=== PATIENT | female | born 1990 | race African-American/Black ===

== ENCOUNTER 2018-02-22 20:13 | Outpatient (CLI) | payer MEDICAID ==
[2015-05-13 12:57] VITALS: BMI 30.9
[~2018-02-22 20:13] MED LIST: IBUPROFEN600 MG PO; MACROBID100 MG PO; PERCOCET 5-3251 TAB PO; PRENATAL COMPLE1 TAB PO
== END 2018-02-22 21:31 | disposition home or self-care (01) ==
LOC: D.LDO 20:13
DX: O26.899 Other specified pregnancy related conditions, unspecified trimester (principal); Z3A.00 Weeks of gestation of pregnancy not specified

== ENCOUNTER → 2020-03-28 08:06 | Outpatient (CLI) | payer MEDICAID ==
[2015-05-13 12:57] VITALS: BMI 30.9
[2020-03-28 09:29] LABS: BILIRUBIN NEGATIVE (NEGATIVE); GLUCOSE NEGATIVE (NEGATIVE); KETONE NEGATIVE (NEGATIVE); NITRITE NEGATIVE (NEGATIVE); UROBILINOGEN NORMAL (NORMAL)
[2020-03-28 09:30] LABS: BACTERIA FEW /hpf (NEGATIVE); RED CELLS - URINE 0-5 /hpf (0-5); WHITE CELLS - URINE 0-5 /hpf (NEGATIVE)
[2020-03-28 09:34] LABS: UDS - AMPHET NEGATIVE QUAL (NEGATIVE); UDS - BARB NEGATIVE QUAL (NEGATIVE); UDS - BENZO NEGATIVE QUAL (NEGATIVE); UDS - COCAINE NEGATIVE QUAL (NEGATIVE); UDS - OPIATE NEGATIVE QUAL (NEGATIVE); UDS - PCP NEGATIVE QUAL (NEGATIVE); UDS - THC NEGATIVE QUAL (NEGATIVE)
== END | disposition home or self-care (01) ==
LOC: D.LDO 08:06
PROVIDERS: ATTEND Obstetrics & Gynecology
DX: O26.899 Other specified pregnancy related conditions, unspecified trimester (principal); Z3A.00 Weeks of gestation of pregnancy not specified

== ENCOUNTER 2020-04-14 11:27 | Outpatient (CLI) | payer MEDICAID ==
[2015-05-13 12:57] VITALS: BMI 30.9
== END 2020-04-14 13:40 | disposition home or self-care (01) ==
LOC: D.LDO 11:27
PROVIDERS: ATTEND Student in an Organized Health Care Education/Training Program
DX: O24.419 Gestational diabetes mellitus in pregnancy, unspecified control (principal); Z3A.33 33 weeks gestation of pregnancy

== ENCOUNTER 2020-04-25 11:33 | Outpatient (CLI) | payer OTHER ==
[2015-05-13 12:57] VITALS: BMI 30.9
== END 2020-04-25 11:57 | disposition home or self-care (01) ==
LOC: D.LDO 11:33
PROVIDERS: ATTEND Student in an Organized Health Care Education/Training Program
DX: O24.419 Gestational diabetes mellitus in pregnancy, unspecified control (principal)

== ENCOUNTER 2020-04-28 12:07 | Outpatient (CLI) | payer OTHER ==
[2015-05-13 12:57] VITALS: BMI 30.9
== END 2020-04-28 13:24 | disposition home or self-care (01) ==
LOC: D.LDO 12:07
PROVIDERS: ATTEND Student in an Organized Health Care Education/Training Program
DX: O24.419 Gestational diabetes mellitus in pregnancy, unspecified control (principal)

== ENCOUNTER 2020-05-05 11:30 | Outpatient (CLI) | payer OTHER ==
[2015-05-13 12:57] VITALS: BMI 30.9
== END 2020-05-05 12:22 | disposition home or self-care (01) ==
LOC: D.LDO 11:30
PROVIDERS: ATTEND Student in an Organized Health Care Education/Training Program
DX: O24.419 Gestational diabetes mellitus in pregnancy, unspecified control (principal)

== ENCOUNTER 2020-05-18 15:52 | Outpatient (CLI) | payer OTHER ==
[2015-05-13 12:57] VITALS: BMI 30.9
== END 2020-05-18 17:15 | disposition home or self-care (01) ==
LOC: D.LDO 15:52
PROVIDERS: ATTEND Student in an Organized Health Care Education/Training Program
DX: O24.419 Gestational diabetes mellitus in pregnancy, unspecified control (principal)

== ENCOUNTER 2020-05-23 04:50 | Inpatient (IN) | payer OTHER ==
[~2020-05-23] VITALS: Ht 167.6 cm; Wt 88.9 kg
[2020-05-23] VITALS: BP 129/80
[2020-05-23 04:56] VITALS: BP 130/81; BMI 31.7
[2020-05-23 06:14] LABS: HEMATOCRIT 29.6 % (36.0-48.0); HEMOGLOBIN 9.8 g/dL (12-16); MCH 27.3 pg (26.0-34.0); MCHC 33.1 g/dL (31.0-37.0); MCV 82.5 fL (80.0-100.0); MEAN PLATELET VOLUME 9.9 fL (7.4-10.4); RBC 3.59 10x6/uL (4.00-5.40); RDW 13.4 % (11.5-14.5); WBC 8.8 10x3/uL (4.8-10.8)
[2020-05-23 06:30] LABS: BILIRUBIN NEGATIVE (NEGATIVE); KETONE SMALL mg/dL (NEGATIVE); NITRITE NEGATIVE (NEGATIVE); UROBILINOGEN NORMAL mg/dL (< 2)
[2020-05-23 06:31] LABS: BACTERIA FEW HPF (NONE SEEN); WHITE CELLS - URINE 0-5 HPF (0-4)
[2020-05-23 06:36] LABS: UDS - AMPHET NEGATIVE QUAL (NEGATIVE); UDS - BARB NEGATIVE QUAL (NEGATIVE); UDS - BENZO NEGATIVE QUAL (NEGATIVE); UDS - COCAINE NEGATIVE QUAL (NEGATIVE); UDS - OPIATE NEGATIVE QUAL (NEGATIVE); UDS - PCP NEGATIVE QUAL (NEGATIVE); UDS - THC NEGATIVE QUAL (NEGATIVE)
--- NOTE | 2020-05-23 23:15 | NUR ---
RECEIVED PT TO [facility] FROM [facility]. PT AMBULATED TO NEW ROOM. HER IS WITH HER. SHE HAS A RIGHT HAND SL. HER FUNDUS IS FIRM AFTER MASSAGE, BLEEDING IS LIGHT. SHE HAS VOIDED ONE TIME. PT IS SBA TO I IN HER ADL'S. SHE IS HAVING BACK PAIN FROM THE MANIPULATIONS TO HER EPIDURAL CATHETER TO GET IT OUT. SHE HAS HAD MOTRIN, WHICH PT STATES HAS NOT HELPED. HEART SOUNDS REGULAR WITHOUT MURMUR, LUNGS CLEAR, BS HEARD. PT AND ARE SETTLEING IN THEIR NEW ROOM NICELY. THEY ASKED FOR AND RECEIVED A GLASS OF ICE AND REAL COKE. THIS WAS DELIVERED TO THEM. OFFER THEM A SANDWICH BUT THEY BOTH DECLINED.
--- NOTE | 2020-05-23 23:32 | NUR ---
PT MOVED TO ROOM 1222.
[2020-05-24] VITALS: BP 129/80
--- NOTE | 2020-05-24 01:15 | NUR ---
PT C/O OF HORRIBLE BACK PAIN NOW. SHE WAS GIVEN 4 MG MORPHINE IV. ORDER WAS STILL ACTIVE AT THE TIME.
--- NOTE | 2020-05-24 02:27 | NUR ---
PT CONT. TO C/O PAIN. MOTRIN 600 MG GIVEN PO PER DR. MEZA. SHE RATES HER PAIN AN 8
--- NOTE | 2020-05-24 04:00 | NUR ---
PT AND ARE SLEEPING. NO C/O OR NEEDS
--- NOTE | 2020-05-24 06:00 | NUR ---
PT HAS BEEN SLEEPING WELL. SHE STATES HER BACK IS SORE TODAY BUT SHE IS NOT IN MUCH PAIN SHE WAS EARLIER IN THE SHIFT. FASTING BLOOD SUGAR 121
--- NOTE | 2020-05-24 07:00 | NUR ---
REPORT RECEIVED FROM Blu CHO RN.
[2020-05-24 07:16] LABS: RAPID PLASMA REAGIN Non Reactive (Non Reactive)
[2020-05-24 07:26] LABS: BASOPHILS 0 % (0-2); EOSINOPHILS 0.5 % (0-7); IMMATURE GRANULOCYTES 0.2 % (0-5); MCH 27.4 pg (26.0-34.0); MCHC 32.9 g/dL (31.0-37.0); MCV 83.3 fL (80.0-100.0); MEAN PLATELET VOLUME 9.7 fL (7.4-10.4); NEUTROPHILS 73.3 % (40-80); RDW 13.6 % (11.5-14.5)
[2020-05-24 07:42] LABS: HEMATOCRIT 23.4 % (36.0-48.0); HEMOGLOBIN 7.7 g/dL (12-16); PLATELET COUNT 183 10x3/uL (130-400); RBC 2.81 10x6/uL (4.00-5.40); WBC 12.8 10x3/uL (4.8-10.8)
[2020-05-24 09:00] VITALS: BP 114/78
--- NOTE | 2020-05-24 09:00 | NUR ---
TO ROOM FOR ASSESSMENT-SEE FLOWSHEET. PT SITTING UP IN BED. PT C/O BACK PAIN AT EPIDURAL SITE BETWEEN HIPS AND BETWEEN SHOULDER BLADES. DENIES HEADACHE OR LOWER LIMB WEAKNESS/NUMBNESS. FUNDUS IS FIRM AT 1 BELOW THE UMBLICUS, MIDLINE;LOCHIA SMALL/SCANT AND RUBRA. NO OTHER NEEDS OR CONCERNS VOICED AT THIS TIME.
--- NOTE | 2020-05-24 09:50 | NUR ---
DR. STEELE ON UNIT FOR ROUNDS. IN TO SEE PT. ORDERS RECIEVED.
[2020-05-24 10:37] VITALS: Ht 167.6 cm; Wt 88.9 kg
--- NOTE | 2020-05-24 12:22 | NUR ---
ROOM CHECK. PATIENT DENIES PAINS OR NEEDS AT THIS TIME. CALL LIGHT IN REACH. SIDE RAILS UP X2. PATIENT UP WALKING IN ROOM. FOB AT BEDSIDE HOLDING . WILL CONTINUE TO MONITOR.
--- NOTE | 2020-05-24 13:58 | NUR ---
ROOM CHECK. PATIENT DENIES PAIN OR NEEDS. CALL LIGHT IN REACH. SIDE RAILS UP X 2. FOB IN ROOM. WILL CONTINUE TO MONITOR.
--- NOTE | 2020-05-24 14:20 | NUR ---
PT REQUESTS MOTRIN FOR BACK PAIN. MOTRIN GIVEN. NO OTHER NEEDS OR CONCERNS AT THIS TIME.
--- NOTE | 2020-05-24 15:40 | NUR ---
ROUNDS MADE. MALE VISITOR AT BEDSIDE. PT SITTING UP IN BED WITH BABY IN ARMS. NO NEEDS VOICED AT THIS TIME.
[2020-05-24 16:07] LABS: BASOPHILS 0 % (0-2); EOSINOPHILS 0.3 % (0-7); HEMATOCRIT 23.4 % (36.0-48.0); HEMOGLOBIN 7.6 g/dL (12-16); IMMATURE GRANULOCYTES 0.2 % (0-5); LYMPHOCYTES 17.3 % (15-50); MCH 27.1 pg (26.0-34.0); MCHC 32.5 g/dL (31.0-37.0); MCV 83.6 fL (80.0-100.0); MEAN PLATELET VOLUME 9.1 fL (7.4-10.4); MONOCYTES 5.6 % (2-11); NEUTROPHILS 76.6 % (40-80); PLATELET COUNT 185 10x3/uL (130-400); RDW 13.4 % (11.5-14.5); WBC 12.9 10x3/uL (4.8-10.8)
--- NOTE | 2020-05-24 17:30 | NUR ---
DR. STEELE CALLED TO UNIT. REPORTED CBC RESULTS. DR. STEELE STATES PT MAY D/C TO ROOMING IN IF PT DESIRES.
--- NOTE | 2020-05-24 17:51 | NUR ---
PT SEE SUPERVISOR LIGHT REQUESTING NURSE TO COME TO ROOM. PT STATES SHE STOOD UP TO GO TO BATHROOM AND FELT A CLOT COME OUT. PT BACK TO BED. LARGE CLOT (APPROX. EGG SIZE) ON PERIPAD. FUNDUS FIRM 2 ABOVE UMBILICUS, SHIFTED LEFT. PT STATES BLADDER IS FULL; LOCHIA IS SCANT. INSTRUCTED PT TO CALL WHEN BACK TO BED AFTER VOIDING TO ASSESS BLEEDING/FUNDUS. STATES UNDERSTANDNG.
[2020-05-24 18:17] VITALS: BP 128/81
--- NOTE | 2020-05-24 18:18 | NUR ---
PT BACK TO BED. VS TAKEN. PT STATES NO OTHER CLOTS HAVE BEEN PASSED. FUNDUS FIRM @ U AND MIDLINE. LOCHIA SMALL/SCANT RUBRA. MALE VISITOR AT BEDSIDE. NO NEEDS OR CONCERNS VOICED AT THIS TIME.
--- NOTE | 2020-05-24 19:15 | NUR ---
RECEIVED SHIFT REPORT FROM TERRELL MORALES RN
--- NOTE | 2020-05-24 20:05 | NUR ---
ROUNDS MADE, INFORMED PT THAT I WILL BE BACK SHORTLY TO DO ASSESSMENT, PT VERBALIZES UNDERSTANDING, REQUESTED AND SERVED FRESH H20 AND ICE CHIPS, DENIES FURTHER NEEDS
[2020-05-24 21:50] VITALS: BP 132/80
--- NOTE | 2020-05-24 21:50 | NUR ---
ASSESSMENT PER FLOW SHEET, VS OBTAINED, PT C/O SALINE LOCK, PT STATES "THIS IV IS REALLY HURTING, CAN YOU PLEASE TAKE IT OUT", SALINE LOCK REMOVED, TIP INTACT, PRESSURE HELD BANDAID APPLIED, FF, ML, U/2, LITE BLEEDING NOTED WITH NO CLOTS, PT REPORTS "EGG SIZE CLOT EARLIER TODAY", BUT NOTHING SINCE THEN, PT REPORTS FLATUS, NO BM AND VOIDING WITH NO DIFFICULTY, PT C/O CRAMPING, WILL ADM MOTRIN
--- NOTE | 2020-05-24 22:00 | NUR ---
ADM ROSA PO PER MD ORDERS, SEE EMAR, PT DENIES FURTHER NEEDS, PT REQUESTS TO ROOM, FOB AT BEDSIDE
--- NOTE | 2020-05-24 22:10 | NUR ---
INFANT TO ROOM VIA OPEN CRIB CART PER THIS RN, BANDS CHECKED, PT DENIES FURTHER NEEDS, FOB REQUESTED AND SERVED MARISEL
--- NOTE | 2020-05-24 23:00 | NUR ---
PT AWAKE, HOLDING INFANT, DENIES NEEDS OR PAIN, FOB AT BEDSIDE
--- NOTE | 2020-05-25 00:22 | NUR ---
PT AWAKE, REQUESTED AND SERVED BRUNA CRACKERS AND PEANUT BUTTER, DENIES FURTHER NEEDS OR PAIN, IN OPEN CRIB CART AND FOB AT BEDSIDE
--- NOTE | 2020-05-25 02:43 | NUR ---
PT AWAKE HOLDING INFANT, PT REQUESTS BACK TO NSY, TO NSY VIA OPEN CRIB CART PER NSY NURSE, PT REQUESTS MOTRIN WHEN DUE, PT DENIES FURTHER NEEDS, FOB ASLEEP AT BEDSIDE
--- NOTE | 2020-05-25 04:37 | NUR ---
PT RESTING WITH EYES CLOSED, RESP QUIET, NO DISTRESS NOTED, LEFT UNDISTURBED AT THIS TIME, FOB ASLEEP AT BEDSIDE
--- NOTE | 2020-05-25 07:03 | NUR ---
PT AROUSES TO OPENING OF DOOR, C/O CRAMPING, ADM MOTRIN PO PER MD ORDERS, SEE EMAR, WITH FRESH H20, PT DENIES FURTHER NEEDS, FOB AT BEDSIDE
--- NOTE | 2020-05-25 08:15 | NUR ---
AM ASSESSMENT CHARTED TO FLOWSHEET, PT UP WALKING ABOUT ROOM. C/O LOWER BACK PAIN, APPEARS TO BE WHERE EPIDURAL WAS PLACED. WARM TOWEL PROVIDED FOR HER TO LAY ON. ORDER RECEIVED FROM DR ROBERTSON FOR ANESTHESIA CONSULT TO ASSESS THIS. SHE DENIES NEEDS AT THIS TIME. SPOUSE AT BEDSIDE. SIDE RAILS UP X 2 WITH CALL LIGHT IN REACH.
--- NOTE | 2020-05-25 09:34 | NUR ---
MEDS GIVEN SCANNED TO EMAR. LARGE ICE WATER REQUESTED. PT QUESTIONS WHEN DISCHARGE WOULD POSSIBLY BE AND UNDERSTANDS THAT COULD NOT DISCHARGE UNTIL 1954 WHICH IS 48HOURS AFTER DELIVERY. PT OK WITH ROOMING IN UNTIL TIME FOR INFANT DISCHARGE LATER TODAY.
--- NOTE | 2020-05-25 11:55 | NUR ---
ANESTHESIA CALLED, SPOKE WITH DR CARRILLO ABOUT MD REQUEST FOR THEM TO COME LOOK AT PATIENTS BACK PRIOR TO HER DISCHARGE. DR CARRILLO STATES HE WOULD SEND SOMEONE WHEN POSSIBLE.
--- NOTE | 2020-05-25 12:10 | NUR ---
ROOM CHECK. PATIENT SITTING UP IN BED. IN ROOM. INFANT ASLEEP IN OPEN CRIB. PATIENT DENIES ANY NEEDS. CALL LIGHT IN REACH. SIDE RAILS UP X2. WILL CONTINUE TO MONITOR.
--- NOTE | 2020-05-25 12:45 | NUR ---
D/C EDUCATION AND INSTRUCTIONS GIVEN TO PATIENT. SL IV REMOVED WITH TIP INTACT. NO S/S OF BLEEDING OR INFECTION NOTED. PATIENT VERBALIZED UNDERSTANDING AND AGREEMENT TO INSTRUCTIONS. NOT DISCHARGED AT THIS TIME. PATIENT WILL BE ROOMING IN TILL BABY DISCHARGED.
[2020-05-25 13:10] VITALS: BP 134/83
--- NOTE | 2020-05-25 13:10 | NUR ---
ROOM CHECK. VSS. PATIENT DENIES NEEDS AT THIS TIME. CALL LIGHT IN REACH.
--- NOTE | 2020-05-25 15:28 | NUR ---
D/C EDUCATION AND INSTRUCTIONS PROVIDED TO PATIENT. PATIENT VERBALIZED UNDERSTANDING AND AGREEMENT. DENIES ANY NEEDS. INFANT NOT D/C AT THIS TIME. PT WILL ROOM IN UNTIL DISCHARGED.
--- NOTE | 2020-05-25 15:45 | NUR ---
VERBAL AND WRITTEN DISCHARGE ORDERS GONE OVER WITHOUT QUESTIONS OR CONCERNS. PT TO ROOM IN UNTIL INFANT DISCHARGE WHICH WILL BE TODAY AROUND 1999. PT GIVEN L/D PHONE EXT TO CALL IF NURSE NEEDED, SHE ALREADY HAS NURSERY EXT. MOTRIN 600MG GIVEN PO WITH LARGE ICE WATER. ALSO GIVEN BRUNA CRACKERS, PEANUT BUTTER AND COLA. IN CRIB AT BEDSIDE. SPOUSE ALSO PRESENT.
== END 2020-05-25 16:00 | disposition home or self-care (01) | DRG 807 ==
LOC: D.LD 04:50 → D.WS 04:50
PROVIDERS: ADMIT Student in an Organized Health Care Education/Training Program; ATTEND Student in an Organized Health Care Education/Training Program
PROC: 10E0XZZ Delivery of Products of Conception, External Approach (ICD-10-PCS; principal; 2020-05-23)
PROC: 3E033VJ Introduction of Other Hormone into Peripheral Vein, Percutaneous Approach (ICD-10-PCS; 2020-05-23)
PROC: 10907ZC Drainage of Amniotic Fluid, Therapeutic from Products of Conception, Via Natural or Artificial Opening (ICD-10-PCS; 2020-05-23)
DX: O99.824 Streptococcus B carrier state complicating childbirth (principal); Z37.0 Single live birth; Z3A.39 39 weeks gestation of pregnancy; O24.420 Gestational diabetes mellitus in childbirth, diet controlled; O69.81X0 Labor and delivery complicated by cord around neck, without compression, not applicable or unspecified; O71.89 Other specified obstetric trauma; O76 Abnormality in fetal heart rate and rhythm complicating labor and delivery